=== PATIENT | female | born 1940 | race Caucasian/White ===

== ENCOUNTER 2017-12-21 00:44 | Outpatient (CLI) | payer MEDICARE, SELFPAY ==
--- NOTE | 2017-12-21 12:58 | DI.RAD_ITS ---
SYMPTOMS/DIAGNOSIS: F/U LUNG CA, POST RADIATION AND CHEMO PA AND LATERAL CHEST: The lungs are well expanded. No infiltrate or mass is seen. There is no pleural effusion. The heart is not enlarged. The patient is status post AVR. The hilar structures and mediastinum are intact. A Port-a-Cath is noted in good position. Its tip ending in the superior vena cava. SUMMARY: No evidence of metastatic disease. No evidence of acute cardiopulmonary disease.
== END 2017-12-21 01:04 ==
PROVIDERS: PCP Family Medicine; Visit Provider Internal Medicine Medical Oncology
DX: C34.11 Malignant neoplasm of upper lobe, right bronchus or lung (principal); Z92.21 Personal history of antineoplastic chemotherapy; Z92.3 Personal history of irradiation; Z95.2 Presence of prosthetic heart valve
CPT/HCPCS: 71046

== ENCOUNTER 2017-12-21 12:31 | Outpatient (RCR) | payer MEDICARE, SELFPAY ==
[2017-12-21] MEDS: Normal Saline Flush 10 ML SYR IVP (12:30)
[2017-12-21] MEDS: Heparin 500 UNITS/5 ML SYRINGE IV (12:30)
[2017-12-21 12:52] LABS: Absolute Basophil Count 0.05 k/cumm (0.0-0.2); Absolute Eosinophil Count 0.17 k/cumm (0.0-0.7); Absolute Lymphocyte Count 1.25 k/cumm (1.2-3.4); Absolute Monocyte Count 0.49 k/cumm (0.11-0.7); Basophils % 1.3; Eosinophils % 4.3; HCT 34.2 % (36.0-46.0); HGB 11.1 g/dL (12.0-15.5); Lymphocytes % 31.3; Mean Corp. HGB Concentration 32.5 g/dL (32.0-36.0); Mean Corpuscular Hemoglobin 30.8 pg (27.0-33.0); Monocytes % 12.3; Neutrophils % 50.8; Platelet Count 271 x1000/uL (130-400); RBC Distribution Width 13.2 % (11.7-14.6)
[2017-12-21 12:53] LABS: Absolute Neutrophil Count 2.03 k/cumm (1.2-6.7)
[2017-12-21 13:05] LABS: ALT 28 U/L (12-78); AST 17 U/L (15-37); Albumin 3.6 g/dL (3.4-5.0); Alkaline Phosphatase 104 U/L (46-116); Anion Gap 8.3 mmol/L (3-11); BUN 13 mg/dL (7-18); Bilirubin, Total 0.2 mg/dL (0.2-1.0); CO2 28.7 mmol/L (21.0-32.0); CREATININE 0.73 mg/dL (0.55-1.02); Calcium 9.1 mg/dL (8.5-10.1); Chloride 103 mmol/L (98-107); Glucose 142 mg/dL (70-100); Sodium 140 mmol/L (136-145); Total Protein 7.8 g/dL (6.4-8.2)
== END 2017-12-24 23:59 | disposition home or self-care (01) ==
LOC: INF 12:31
PROVIDERS: PCP Family Medicine; Visit Provider Internal Medicine Medical Oncology
DX: C34.11 Malignant neoplasm of upper lobe, right bronchus or lung (principal); Z45.2 Encounter for adjustment and management of vascular access device
CPT/HCPCS: 36591; 80053; 71046; 85025

== ENCOUNTER 2018-06-28 14:04 | Outpatient (CLI) | payer MEDICARE, SELFPAY ==
[2018-06-28 14:24] LABS: Abs Immature Grans 0.01 k/cumm (0.0-0.09); Absolute Basophil Count 0.04 k/cumm (0.0-0.2); Absolute Eosinophil Count 0.12 k/cumm (0.0-0.7); Absolute Lymphocyte Count 1.33 k/cumm (1.2-3.4); Absolute Neutrophil Count 2.75 k/cumm (1.2-6.7); Basophils % 0.8; Eosinophils % 2.5; HGB 11.1 g/dL (12.0-15.5); Immature Grans % 0.2; Lymphocytes % 27.4; Mean Corp. HGB Concentration 32.6 g/dL (32.0-36.0); Mean Corpuscular Hemoglobin 30.9 pg (27.0-33.0); Mean Corpuscular Volume 94.7 fL (80-95); Mean Platelet Volume 9.2 fL (8.0-11.0); Monocytes % 12.4; Neutrophils % 56.7; Platelet Count 250 x1000/uL (130-400); RBC 3.59 m/cumm (4.00-5.20); RBC Distribution Width 12.5 % (11.7-14.6); White Blood Cell Count 4.85 k/cumm (4.4-10.8)
[2018-06-28 14:35] LABS: ALT 30 U/L (12-78); AST 22 U/L (15-37); Albumin 3.7 g/dL (3.4-5.0); Alkaline Phosphatase 101 U/L (46-116); Anion Gap 11.3 mmol/L (3-11); BUN 17 mg/dL (7-18); Bilirubin, Total 0.3 mg/dL (0.2-1.0); CO2 25.7 mmol/L (21.0-32.0); Calcium 8.6 mg/dL (8.5-10.1); Chloride 97 mmol/L (98-107); Glucose 241 mg/dL (70-100); Potassium 3.9 mmol/L (3.5-5.1); Sodium 134 mmol/L (136-145); Total Protein 7.6 g/dL (6.4-8.2)
== END 2018-06-28 14:24 ==
PROVIDERS: PCP Family Medicine; Visit Provider Internal Medicine Medical Oncology
DX: C34.11 Malignant neoplasm of upper lobe, right bronchus or lung (principal)
CPT/HCPCS: 36415; 80053; 85025

== ENCOUNTER 2019-02-07 09:05 | Outpatient (RCR) | payer MEDICARE, SELFPAY ==
[2019-02-07 09:54] LABS: Absolute Basophil Count 0.02 k/cumm (0.0-0.2); Absolute Eosinophil Count 0.11 k/cumm (0.0-0.7); Absolute Lymphocyte Count 0.88 k/cumm (1.2-3.4); Absolute Monocyte Count 0.29 k/cumm (0.11-0.7); Absolute Neutrophil Count 2.69 k/cumm (1.2-6.7); Basophils % 0.5; Eosinophils % 2.8; HCT 34.1 % (36.0-46.0); HGB 10.6 g/dL (12.0-15.5); Lymphocytes % 22.1; Mean Corp. HGB Concentration 31.1 g/dL (32.0-36.0); Mean Corpuscular Hemoglobin 28.5 pg (27.0-33.0); Mean Corpuscular Volume 91.7 fL (80-95); Mean Platelet Volume 8.7 fL (8.0-11.0); Monocytes % 7.3; Neutrophils % 67.3; Platelet Count 400 x1000/uL (130-400); RBC 3.72 m/cumm (4.00-5.20); RBC Distribution Width 13.5 % (11.7-14.6); White Blood Cell Count 3.99 k/cumm (4.4-10.8)
[2019-02-07 10:00] LABS: ALT 19 U/L (14-59); AST 16 U/L (15-37); Albumin 3.6 g/dL (3.4-5.0); Alkaline Phosphatase 106 U/L (46-116); Anion Gap 9.2 mmol/L (3-11); BUN 15 mg/dL (7-18); Bilirubin, Total 0.2 mg/dL (0.2-1.0); CO2 28.8 mmol/L (21.0-32.0); CREATININE 0.81 mg/dL (0.55-1.02); Chloride 100 mmol/L (98-107); Glucose 143 mg/dL (70-100); Potassium 3.6 mmol/L (3.5-5.1); Sodium 138 mmol/L (136-145); Total Protein 8.5 g/dL (6.4-8.2)
== END 2019-02-23 23:59 | disposition home or self-care (01) ==
LOC: INF 09:05
PROVIDERS: PCP Family Medicine; Visit Provider Internal Medicine Hematology & Oncology
DX: C34.11 Malignant neoplasm of upper lobe, right bronchus or lung (principal)
CPT/HCPCS: 36415; 80053; 85025

== ENCOUNTER 2019-08-15 13:10 | Outpatient (RCR) | payer MEDICARE, SELFPAY ==
[2019-08-15 13:58] LABS: Abs Immature Grans 0.01 k/cumm (0.0-0.09); Absolute Basophil Count 0.02 k/cumm (0.0-0.2); Absolute Eosinophil Count 0.11 k/cumm (0.0-0.7); Absolute Lymphocyte Count 1.06 k/cumm (1.2-3.4); Absolute Monocyte Count 0.36 k/cumm (0.11-0.7); Absolute Neutrophil Count 3.53 k/cumm (1.2-6.7); Basophils % 0.4; Eosinophils % 2.2; HCT 32.8 % (36.0-46.0); HGB 10.5 g/dL (12.0-15.5); Immature Grans % 0.2 %; Lymphocytes % 20.8; Mean Corpuscular Volume 90.6 fL (80-95); Mean Platelet Volume 8.5 fL (8.0-11.0); Monocytes % 7.1; Neutrophils % 69.3; Platelet Count 418 x1000/uL (130-400); RBC 3.62 m/cumm (4.00-5.20); RBC Distribution Width 14.2 % (11.7-14.6); White Blood Cell Count 5.09 k/cumm (4.4-10.8)
[2019-08-15 14:10] LABS: ALT 18 U/L (14-59); AST 15 U/L (15-37); Albumin 3.8 g/dL (3.4-5.0); Alkaline Phosphatase 123 U/L (46-116); Anion Gap 7.3 mmol/L (3-11); BUN 15 mg/dL (7-18); Bilirubin, Total 0.2 mg/dL (0.2-1.0); CO2 28.7 mmol/L (21.0-32.0); CREATININE 0.79 mg/dL (0.55-1.02); Calcium 9.2 mg/dL (8.5-10.1); Chloride 99 mmol/L (98-107); Glucose 131 mg/dL (74-106); Potassium 3.9 mmol/L (3.5-5.1); Sodium 135 mmol/L (136-145); Total Protein 8.4 g/dL (6.4-8.2)
== END 2019-08-25 23:59 | disposition home or self-care (01) ==
LOC: INF 13:10
PROVIDERS: PCP Family Medicine; Visit Provider Internal Medicine Hematology & Oncology
DX: C34.11 Malignant neoplasm of upper lobe, right bronchus or lung (principal)
CPT/HCPCS: 36415; 80053; 85025

== ENCOUNTER 2021-07-01 08:51 | Outpatient (CLI) | payer MEDICARE, SELFPAY ==
[2021-07-01 08:23] LABS: Abs Immature Grans 0.03 10^3/uL (0.0-0.06); Absolute Basophil Count 0.06 10^3/uL (0.0-0.2); Absolute Lymphocyte Count 1.01 10^3/uL (1.2-3.4); Absolute Monocyte Count 0.44 10^3/uL (0.1-0.8); Absolute Neutrophil Count 3.55 10^3/uL (1.2-6.7); Basophils % 1.1; Eosinophils % 3.8; HCT 33.9 % (36.0-46.0); HGB 10.6 g/dL (11.2-15.7); Immature Grans % 0.6; Lymphocytes % 19.1; MCH 29.9 pg (27.0-33.0); MCHC 31.3 % (32.0-36.0); MCV 95.8 fL (80-95); MPV 8.7 fL (8.0-11.0); Monocytes % 8.3; Neutrophils % 67.1; Nucleated RBC 0 %; Platelet Count 320 10^3/uL (130-400); RBC 3.54 10^6/uL (3.93-5.22); RDW 13.5 % (11.7-14.6); RDW-SD 47.9 fL; WBC 5.29 10^3/uL (4.4-10.8)
[2021-07-01 08:38] LABS: ALT 13 U/L (14-59); AST 13 U/L (15-37); Albumin 3.9 g/dL (3.4-5.0); Alkaline Phosphatase 91 U/L (46-116); Anion Gap 9.5 mmol/L (3-11); BUN 17 mg/dL (7-18); Bilirubin, Total 0.3 mg/dL (0.2-1.0); CO2 27.5 mmol/L (21.0-32.0); CREATININE 0.9 mg/dL (0.55-1.02); Calcium 9.2 mg/dL (8.5-10.1); Chloride 101 mmol/L (98-107); Glucose 124 mg/dL (74-106); Potassium 3.9 mmol/L (3.5-5.1); Sodium 138 mmol/L (136-145); Total Protein 7.9 g/dL (6.4-8.2)
== END 2021-07-01 08:52 | disposition home or self-care (01) ==
LOC: LBO 09:07
PROVIDERS: PCP Family Medicine; Visit Provider Internal Medicine Hematology & Oncology
DX: C34.11 Malignant neoplasm of upper lobe, right bronchus or lung (principal)
CPT/HCPCS: 36415; 80053; 85025